=== PATIENT | female | born 1960 | race Caucasian/White ===

== ENCOUNTER 2022-01-01 17:19 | Inpatient (IN) | payer OTHER ==
[~2022-01-01] VITALS: Ht 149.9 cm; Wt 38.6 kg
--- NOTE | 2022-01-01 17:30 | NUR ---
Placed in room 05 . Placed on cardiac rehab nurse, blood pressure machine and pulse oximeter. To gown for exam. Side rails up. Report given to KENNETH Oreilly
--- NOTE | 2022-01-01 17:45 | NUR ---
FIRST CONTACT WITH PT. PT S[facility] WITH C/O R ARM NUMBNESS AND WEAKNESS. PT STATES SHE HAS NEUROPATHY AND HAD A FALL WHICH MADE NUMBNESS/WEAKNESS WORSE. GCS 15. RESP EVEN AND UNLABORED. VSS. WILL CONT TO MONITOR
[2022-01-01 18:00] VITALS: BP_SYST 157
[2022-01-01 18:28] LABS: BASOPHILS % (AUTO) 0.6 % (0.0-2.0); EOSINOPHILS # (AUTO) 0.1 K/uL (0.0-0.4); EOSINOPHILS % (AUTO) 1.4 % (0.0-4.0); HEMOGLOBIN 12.4 g/dL (12.0-16.0); LYMPHOCYTES # (AUTO) 1.6 K/uL (1.0-5.5); LYMPHOCYTES % (AUTO) 27.6 % (20.5-51.5); MEAN CORPUSCULAR HEMOGLOBIN 31 pg (27-31); MEAN CORPUSCULAR HGB CONC 34 % (32-36); MEAN CORPUSCULAR VOLUME 91 fL (79.0-98.0); MONOCYTES # (AUTO) 0.4 K/uL (0.0-1.0); MONOCYTES % (AUTO) 6.9 % (1.7-9.3); NEUTROPHILS # (AUTO) 3.7 K/uL (1.8-7.7); NEUTROPHILS % (AUTO) 63.5 % (40.0-70.0); PLATELET COUNT (AUTO) 361 K/uL (130-430); RED BLOOD CELL COUNT(AUTO) 4.06 MIL/uL (4.2-6.2); WHITE BLOOD COUNT (AUTO) 5.8 K/uL (4.8-10.8)
[2022-01-01 18:42] LABS: ANION GAP 6 (5-15); CALCIUM 7.7 mg/dL (8.4-11.0); CHLORIDE 105 mmol/L (98-107); CREATININE 0.56 mg/dL (0.55-1.30); GLUCOSE 94 mg/dL (70-99); POTASSIUM 3.6 mmol/L (3.5-5.1); SODIUM SERUM 139 mmol/L (136-145); UREA NITROGEN, BLOOD 25 mg/dL (8-21)
[2022-01-01 18:48] LABS: ALANINE AMINOTRANSFERASE 7 U/L (12-78); ASPARTATE AMINOTRANSFERASE 14 U/L (10-37); TOTAL BILIRUBIN 0.3 mg/dL (0.0-1.0)
[2022-01-01 18:53] LABS: GFR AFRICAN AMERICAN 142 mL/min (>90)
[2022-01-01 19:03] LABS: ACETONE, SERUM NEGATIVE (NEGATIVE)
--- NOTE | 2022-01-01 21:39 | NUR ---
Admit bed requested Patient will be admitted to care of . Admitted to TELE unit. Diagnosis: GEN WEAKNESS, SCHIZOPHRENIA Inpatient (Yes or No) Y Observation (Yes or No) Y Orientation concerns or request close to nursing station (Yes or No) Y Covid Status: PENDING Sitter: [id number] From Home (Yes or if No enter name of facility) [facility] Med Rec Completed (Yes of No) PENDING
--- NOTE | 2022-01-01 21:50 | NUR ---
COVID SWABS SENT TO LAB
--- NOTE | 2022-01-01 21:51 | NUR ---
MRSA swabbed and sent to the lab
--- NOTE | 2022-01-01 21:51 | NUR ---
Tamara swabbed and sent to the lab
[2022-01-01] MEDS ORDERED: BENZ0.5T43 PO (22:08)
[2022-01-01] MEDS ORDERED: CARB-290 PO (22:08)
[2022-01-01] MEDS ORDERED: QUET50TA PO (22:08)
[2022-01-01] MEDS ORDERED: MELA3TAB41 PO (22:08)
[2022-01-01] MEDS ORDERED: LIP10 PO (22:08)
[2022-01-01] MEDS ORDERED: SOLI5TAB2 PO (22:08)
[2022-01-01] MEDS ORDERED: DIVA500T4 PO (22:08)
[2022-01-01] MEDS ORDERED: GABA-529 PO (22:08)
[2022-01-01] MEDS ORDERED: METO50TA7 PO (22:08)
--- NOTE | 2022-01-01 22:55 | NUR ---
Lisa loaiza provided sitter for the pt at this time.
--- NOTE | 2022-01-01 23:00 | NUR ---
HELEN PRESENT AT BEDSIDE.
--- NOTE | 2022-01-02 07:31 | NUR ---
pt resting in bed, respirations even non labored, no sitter at bedside, denies pain.
--- NOTE | 2022-01-02 11:18 | NUR ---
PT STATED SHE WANTS TO EAT, INFORED PT THAT SHE IS NPO
--- NOTE | 2022-01-02 13:28 | NUR ---
PT RESTING IN BED ,RESPIRATIONS EVEN NON LABORED
--- NOTE | 2022-01-02 17:07 | NUR ---
spoke to Dr. Hollis Herrmann gave SBAR report. ok to change diet to regular and also to give one dose of sinemet PO to patient. Dr. Herrmann will be in around 1800 to assess patient. Patient updated on POC and agrees.
[2022-01-02] MEDS ORDERED: CARBIDOPA/LEVODOPA 25/100 MG TABLET PO ONE (17:15)
--- NOTE | 2022-01-02 17:57 | NUR ---
medications given at this time.
[2022-01-02 19:18] VITALS: BP_SYST 127
--- NOTE | 2022-01-02 19:31 | NUR ---
Patient to be transferred to [facility]. Is being transferred due to higher level of care. Receiving facility has accepting physician and available space. ER physician has signed transfer form. Patient or responsible constitution party has agreed to transfer and signed form. Patient belongings inventoried and will be sent with patient. Copy of nursing notes, lab reports, EKG, Physicians Orders and X-rays to be sent with patient. Report called to [facility] receiving facility. Receiving physician is [facility] ambulance service has been called for transfer. ETA is 2000
== END 2022-01-02 19:31 | DRG 56 ==
LOC: SED 17:19 → STU 21:43
PROVIDERS: ADMIT Student in an Organized Health Care Education/Training Program; ATTEND Student in an Organized Health Care Education/Training Program
DX: G20 Parkinson's disease (principal); E43 Unspecified severe protein-calorie malnutrition; S91.101A Unspecified open wound of right great toe without damage to nail, initial encounter; F20.9 Schizophrenia, unspecified; X58.XXXA Exposure to other specified factors, initial encounter; Z20.822 Contact with and (suspected) exposure to COVID-19; Z79.899 Other long term (current) drug therapy; Y93.89 Activity, other specified; Y92.89 Other specified places as the place of occurrence of the external cause; Y99.8 Other external cause status
CPT/HCPCS: 36415; 70450-TC; 71045; 76376; 80053; 82009; 82550; 83605; 85025; 87081; 93005; 99285; G0378